=== PATIENT | male | born 1990 | race Caucasian/White ===

== ENCOUNTER 2019-08-05 12:50 | Emergency (ER) | payer MEDICAID, OTHER ==
[~2019-08-05] VITALS: Ht 195.6 cm; Wt 147.0 kg
[2019-08-05 13:15] VITALS: BP 141/93
[2019-08-05] MEDS ORDERED: methylPREDNISolone SOD SUCC 125 MG/2 ML VL IM ONE (14:15)
[2019-08-05] MEDS ORDERED: cefTRIAXone SOD 1,000 MG VL IM ONE (14:15)
== END 2019-08-05 14:42 | disposition home or self-care (01) ==
LOC: ER 12:50
DX: J03.90 Acute tonsillitis, unspecified (principal)
CPT/HCPCS: 96372; 99283; J0696; J2930

== ENCOUNTER 2020-08-30 10:59 | Emergency (ER) | payer MEDICAID ==
[~2020-08-30] VITALS: Ht 195.6 cm; Wt 133.8 kg
[2020-08-30 11:07] VITALS: BP 140/85
[2020-08-30] MEDS ORDERED: ACETAMINOPHEN/CODEINE#3 (300/30mg) TAB PO ONE (12:00)
[2020-08-30] MEDS ORDERED: KETOROLAC TROMETH 60MG/2ML VIAL IM ONE (13:00)
== END 2020-08-30 13:23 | disposition home or self-care (01) ==
LOC: ER 10:59
DX: M54.16 Radiculopathy, lumbar region (principal)
CPT/HCPCS: 72131; 96372; 99284; J1885

== ENCOUNTER 2021-04-27 19:48 | Emergency (ER) | payer MEDICAID ==
[~2021-04-27] VITALS: Ht 195.6 cm; Wt 136.1 kg
[2021-04-27] MEDS ORDERED: KETOROLAC TROMETH 60MG/2ML VIAL IM ONE (22:00)
[2021-04-27 22:33] VITALS: BP 126/74
== END 2021-04-27 22:23 | disposition home or self-care (01) ==
LOC: ER 19:48
DX: S86.912A Strain of unspecified muscle(s) and tendon(s) at lower leg level, left leg, initial encounter (principal); S93.402A Sprain of unspecified ligament of left ankle, initial encounter; X50.1XXA Overexertion from prolonged static or awkward postures, initial encounter; Y93.55 Activity, bike riding; Y92.89 Other specified places as the place of occurrence of the external cause; Y99.8 Other external cause status
CPT/HCPCS: 73562; 73590; 73610; 96372; 99284; J1885

== ENCOUNTER 2022-02-17 16:33 | Emergency (ER) | payer MEDICAID ==
[~2022-02-17] VITALS: Ht 195.6 cm; Wt 127.0 kg
[2022-02-17 16:34] VITALS: BP 132/73
[2022-02-17] MEDS ORDERED: ACETAMINOPHEN 325 MG TAB PO ONE (16:45)
[2022-02-17] MEDS ORDERED: LIDOCAINE 1% (LOCAL ANESTH.) PF 5ml SDV ID ONE (19:45)
[2022-02-17] MEDS ORDERED: HYDROcodone-ACET 10/325MG TAB PO ONE (20:15)
[2022-02-17] MEDS ORDERED: HYDR-4902 PO (20:21)
== END 2022-02-17 20:50 | disposition home or self-care (01) ==
LOC: ER 16:33
DX: M25.061 Hemarthrosis, right knee (principal); F12.10 Cannabis abuse, uncomplicated; W18.09XA Striking against other object with subsequent fall, initial encounter; Y93.55 Activity, bike riding; Y92.89 Other specified places as the place of occurrence of the external cause; Y99.8 Other external cause status
CPT/HCPCS: 73030; 73562